=== PATIENT | female | born 2000 | race African-American/Black ===

== ENCOUNTER 2021-08-25 14:05 | Emergency (ER) | payer OTHER ==
[~2021-08-25] VITALS: Ht 172.7 cm; Wt 47.6 kg
[2021-08-25 15:07] LABS: ABSOLUTE NEUTROPHILS 3.9 thou/uL (1.4-8.2); BASOPHILS 0.8 % (0.0-2.0); EOSINOPHILS 2.8 % (0.0-3.0); HEMATOCRIT 35.5 % (37.0-47.0); HEMOGLOBIN 11.1 gm/dL (12.0-15.0); LYMPHOCYTES 26.7 % (24.0-44.0); MCH 24.6 pg (26.0-34.0); MCHC 31.2 g/dL (28.0-37.0); MCV 78.9 fL (80.0-100.0); PLATELET COUNT 235 thou/uL (150-400); POLYS 60.7 % (36.0-66.0); RBC 4.51 mil/uL (4.20-5.00); RDW 15.8 % (10.5-14.5); WBC 6.5 thou/uL (4.0-11.0)
[2021-08-25 15:18] LABS: CALCIUM 8.8 mg/dL (8.5-10.1); CREATININE 0.6 mg/dL (0.6-1.0); POTASSIUM 3.4 mmol/L (3.5-5.1)
[2021-08-25 15:29] LABS: ALBUMIN 3.4 g/dL (3.4-5.0); TOTAL BILIRUBIN 0.5 mg/dL (0.2-1.0); TOTAL PROTEIN 7.4 g/dL (6.4-8.2)
[2021-08-25 17:14] VITALS: BP 123/86
[2021-08-25 17:14] LABS: URINE BILIRUBIN NEGATIVE (Negative); URINE BLOOD 1+ (Negative); URINE CLARITY SL CLOUDY; URINE COLOR YELLOW; URINE GLUCOSE-RANDOM* NEGATIVE (Negative); URINE KETONES NEGATIVE (Negative); URINE LEUKOCYTES-REFLEX NEGATIVE (Negative); URINE NITRITE-REFLEX NEGATIVE (Negative); URINE PROTEIN (DIPSTICK) 2+ (Negative); URINE SPECIFIC GRAVITY 1.025 (1.005-1.035); URINE UROBILINOGEN 0.2 E.U./dl (0.2-1.0)
[2021-08-25 17:32] LABS: SQUAMOUS 4-10 Moderate /LPF (0-3)
[2021-08-25 17:33] LABS: CASTS None Seen /LPF (None Seen)
[2021-08-25 17:34] LABS: BACTERIA-REFLEX 1-9 Few /HPF (None Seen); CRYSTALS None Seen /LPF (None Seen); MUCUS 0-3 Light strn/LPF (None Seen); URINE RBC 1-2 Rare /HPF (NONE SEEN); URINE WBC-REFLEX 0-5 Rare /HPF (0-5)
--- NOTE | 2021-08-26 07:14 | EKG ---
[address] [address] ELECTROCARDIOGRAM REPORT Name: DOYLE WU Room #: [facility] MARISSA [place]#: [id number] Admission: 08/25/21 Attend Phys: Discharge: 08/25/21 Date of : 89 Report #: [id number] [facility] ED Test Date: 2021-08-25 Test Time: 14:55:13 Pat Name: DOYLE WU Department: Room: Gender: F Claim Investigator: ANN : 2000 Requested By: Mal Neil Order Number: [id number] MD: Rishi Lou Measurements Intervals [place] Rate: 69 P: 28 WI: 132 QRS: 82 QRSD: 91 T: 62 QT: 376 QTc: 403 Interpretive Statements Sinus rhythm ST elev, probable normal early repol pattern No previous ECG available for comparison Electronically Signed On 08-26-2021 7:14:03 [employer] by Rishi Lou [email or web address] <ELECTRONICALLY SIGNED> By: Rishi Lou MD, [facility] 08/26/21 0714 1455 1455 Rishi Lou MD, FACC /EPI
== END 2021-08-25 17:14 | disposition home or self-care (01) ==
LOC: ER 14:05
PROVIDERS: Emergency Medicine
DX: R07.89 Other chest pain (principal); M79.10 Myalgia, unspecified site; R51.9 Headache, unspecified; F12.90 Cannabis use, unspecified, uncomplicated; V49.09XA Driver injured in collision with other motor vehicles in nontraffic accident, initial encounter; Y93.89 Activity, other specified; Y92.89 Other specified places as the place of occurrence of the external cause; Y99.8 Other external cause status